=== PATIENT | male | born 1975 | race Caucasian/White ===

== ENCOUNTER 2019-01-08 05:34 | Inpatient (IN) | payer BC ==
[2019-01-08] VITALS (19 sets, daily range): BP systolic 98–142; BP diastolic 59–95; Ht 182.9 cm; Wt 90.2 kg
[~2019-01-08] VITALS: Ht 182.9 cm; Wt 90.2 kg
[2019-01-08] MEDS ORDERED: ALBUTEROL SULF8.5 GM INH (05:47)
[2019-01-08 06:12] LABS: HEMATOCRIT 37.4 % (42.0-54.0); HEMOGLOBIN 12.6 g/dL (13.5-17.5); MCH 31.5 pg (26.0-34.0); MCHC 33.7 g/dL (31.0-37.0); MCV 93.5 fL (80.0-100.0); MEAN PLATELET VOLUME 9.9 fL (7.4-10.4); RDW 12.8 % (11.5-14.5); WBC 10.8 10x3/uL (4.8-10.8)
[2019-01-08 06:40] LABS: PRO BNP 80 pg/mL (0-125); TROPONIN-I < 0.017 ng/mL (0.000-0.060)
[2019-01-08 06:51] LABS: INR 1.15 (0.85-1.17); PROTIME 14.2 SECONDS (11.6-15.0)
[2019-01-08 06:52] LABS: APTT 72.5 SECONDS (22.8-39.4)
[2019-01-08 07:25] LABS: % SATURATION 13 % (15-55); IRON 30 ug/dl (35-150); TOTAL IRON BIND CAPACITY 225 ug/dl (260-445); UNSAT IRON BIND CAPACITY 195 ug/dl (150-375)
[2019-01-08 07:37] LABS: ALBUMIN 3.3 g/dL (3.4-5.0); ALKALINE PHOSPHATASE 89 U/L (46-116); ALT (SGPT) 76 U/L (10-68); BILIRUBIN - TOTAL 0.96 mg/dL (0.2-1.3); CALC OSMOLALITY 280 mosm/kg (275-300); CALCIUM 8.4 mg/dL (8.5-10.1); CARBON DIOXIDE 26.3 mmol/L (21.0-32.0); CHLORIDE - SERUM 104 mmol/L (98-107); FERRITIN 466 ng/mL (3-244); GLUCOSE 100 mg/dL (74-106); POTASSIUM - SERUM 3.9 mmol/L (3.5-5.1); PROTEIN - SERUM 7.7 g/dL (6.4-8.2); SODIUM 140 mmol/L (136-145); UREA NITROGEN 18 mg/dL (7-18); eGFR NON AFRICAN AMERICAN 86 mL/min (90-120)
[2019-01-08] MEDS ORDERED: IBUPROFEN600 MG PO (10:03)
[2019-01-08] MEDS ORDERED: ASMANEX0.24 GM INH (10:08)
[2019-01-08 10:09] LABS: AMORPHOUS SEDIMENT <1+ /lpf (NONE SEEN); APPEARANCE CLEAR (CLEAR); BILIRUBIN NEGATIVE (NEGATIVE); COLOR YELLOW (YELLOW); GLUCOSE NEGATIVE (NEGATIVE); KETONE LARGE mg/dL (NEGATIVE); NITRITE NEGATIVE (NEGATIVE); PROTEIN NEGATIVE (NEGATIVE); UROBILINOGEN NORMAL (NORMAL)
[2019-01-08] MEDS ORDERED: ZYRTEC10 MG PO (10:09)
[2019-01-08] MEDS ORDERED: FLOMAX0.4 MG PO (10:10)
[2019-01-08 10:17] LABS: UDS - AMPHET NEGATIVE QUAL (NEGATIVE); UDS - BARB NEGATIVE QUAL (NEGATIVE); UDS - BENZO NEGATIVE QUAL (NEGATIVE); UDS - COCAINE NEGATIVE QUAL (NEGATIVE); UDS - OPIATE POSITIVE QUAL (NEGATIVE); UDS - PCP NEGATIVE QUAL (NEGATIVE); UDS - THC NEGATIVE QUAL (NEGATIVE)
[2019-01-09] VITALS (15 sets, daily range): BP systolic 90–117; BP diastolic 54–76
[2019-01-09 03:15] LABS: HEMATOCRIT 32.9 % (42.0-54.0); HEMOGLOBIN 10.6 g/dL (13.5-17.5); MCH 30.2 pg (26.0-34.0); MCHC 32.2 g/dL (31.0-37.0); MCV 93.7 fL (80.0-100.0); MEAN PLATELET VOLUME 10.1 fL (7.4-10.4); RBC 3.51 10x6/uL (4.20-6.10); RDW 12.9 % (11.5-14.5)
[2019-01-09 06:28] LABS: ALBUMIN 2.6 g/dL (3.4-5.0); ALKALINE PHOSPHATASE 74 U/L (46-116); ALT (SGPT) 70 U/L (10-68); BILIRUBIN - TOTAL 0.61 mg/dL (0.2-1.3); CALCIUM 7.9 mg/dL (8.5-10.1); CARBON DIOXIDE 24.7 mmol/L (21.0-32.0); CHLORIDE - SERUM 105 mmol/L (98-107); CREATININE - SERUM 0.9 mg/dL (0.6-1.3); GLUCOSE 95 mg/dL (74-106); POTASSIUM - SERUM 4.2 mmol/L (3.5-5.1); SODIUM 139 mmol/L (136-145); eGFR NON AFRICAN AMERICAN > 90 mL/min (90-120)
[2019-01-09 06:30] LABS: CALC OSMOLALITY 277 mosm/kg (275-300); PROTEIN - SERUM 5.7 g/dL (6.4-8.2); UREA NITROGEN 12 mg/dL (7-18)
[2019-01-09 18:10] LABS: APPEARANCE CLEAR (CLEAR); BILIRUBIN NEGATIVE (NEGATIVE); COLOR YELLOW (YELLOW); GLUCOSE NEGATIVE (NEGATIVE); KETONE NEGATIVE (NEGATIVE); NITRITE NEGATIVE (NEGATIVE); PROTEIN NEGATIVE (NEGATIVE)
[2019-01-09 18:12] LABS: BACTERIA FEW /hpf (NONE SEEN); EPITHELIAL CELLS 0-5 /hpf (0-5); RED CELLS - URINE OCC /hpf (0-5); WHITE CELLS - URINE OCC /hpf (0-5)
[2019-01-09] MEDS ORDERED: ASMANEX0.24 GM INH (20:07)
[2019-01-10 03:01] LABS: HEMATOCRIT 30.5 % (42.0-54.0); HEMOGLOBIN 10.1 g/dL (13.5-17.5); MCHC 33.1 g/dL (31.0-37.0); MCV 93.6 fL (80.0-100.0); MEAN PLATELET VOLUME 10.3 fL (7.4-10.4); RBC 3.26 10x6/uL (4.20-6.10); RDW 12.8 % (11.5-14.5); WBC 7.2 10x3/uL (4.8-10.8)
[2019-01-10 05:36] VITALS: BP 120/80
[2019-01-10 08:09] VITALS: BP 107/74
[2019-01-10 10:37] LABS: ALBUMIN 2.7 g/dL (3.4-5.0); ALKALINE PHOSPHATASE 79 U/L (46-116); ALT (SGPT) 59 U/L (10-68); BILIRUBIN - TOTAL 0.46 mg/dL (0.2-1.3); CALCIUM 8.7 mg/dL (8.5-10.1); CARBON DIOXIDE 25.7 mmol/L (21.0-32.0); CHLORIDE - SERUM 106 mmol/L (98-107); POTASSIUM - SERUM 3.6 mmol/L (3.5-5.1); PROTEIN - SERUM 7.1 g/dL (6.4-8.2); SODIUM 141 mmol/L (136-145); UREA NITROGEN 13 mg/dL (7-18); eGFR NON AFRICAN AMERICAN 86 mL/min (90-120)
[2019-01-10 10:38] LABS: CALC OSMOLALITY 283 mosm/kg (275-300); GLUCOSE 145 mg/dL (74-106)
[2019-01-10 12:11] VITALS: BP 104/68
--- NOTE | 2019-01-10 15:00 | MORECARE ---
CASE MANAGEMENT DISCHARGE SUMMARY PATIENT: MUSA ALCANTARA UNIT: [id number] ADM DATE: 01/08/19 AGE: 43 : 71 SEX: M ROOM/BED: D.2216 AUTHOR: LISET WARREN PHYSICIAN: REFERRING PHYSICIAN: LEONEL JOSEPH MD DATE OF SERVICE: 01/10/19 Discharge Plan Patient Name: MUSA ALCANTARA [facility] [facility] 1975 Planned Disposition: Home Anticipated Discharge Date: Discharge Date: Expected LOS: Initial Reviewer: [email or web address] Initial Review Date: 01/08/2019 Generated: 01/10/19 3:59 pm Patient Name: MUSA ALCANTARA Page [id number] at 1500 All edits/amendments must be made on the electronic document DICTATION DATE: 01/10/191458 LINING CLOSER: [place] 01/10/191458 RPT#: [id number] DE DATE: STATUS: ADM IN [facility] [address] [place] [address] END OF REPORT
--- NOTE | 2019-01-10 15:08 | MORECARE ---
CASE MANAGEMENT DISCHARGE SUMMARY PATIENT: MUSA ALCANTARA UNIT: [id number] ADM DATE: 01/08/19 AGE: 43 : 71 SEX: M ROOM/BED: D.2216 AUTHOR: KELVIN,DOC PHYSICIAN: REFERRING PHYSICIAN: LEONEL JOSEPH MD DATE OF SERVICE: 01/10/19 Discharge Plan Patient Name: MUSA ALCANTARA Facility: [facility]:[place] : 1975 Planned Disposition: Home Anticipated Discharge Date: Discharge Date: Expected LOS: Initial Reviewer: [email or web address] Initial Review Date: 01/08/2019 Generated: 01/10/19 4:08 pm Comments DCP- Discharge Planning Updated by [email or web address]: Jaylene Osorio on 01/10/19 2:[address] Patient Name: MUSA ALCANTARA Admission Status: ER Accout number: [id number] Admission Date: 01-08-2019 : 1975 Admission Diagnosis: Attending: LEONEL JOSEPH Current LOS: 2 Anticipated DC Date: Planned Disposition: Home Primary Insurance: [place] Discharge Planning Comments: CM met with patient to complete initial dc planning assessment. CM educated patient on the CM role and verbal consent given by patient to complete assessment. Patient lives at home with his and children where he is independent with his care. At discharge patient plans to return home and feels this is a safe discharge. CM discussed availability of home health, rehab services, and medical equipment. Patient denied known discharge needs at this time. CM will continue to follow and will assist as needed with dc plans/needs. Microbial Specialist: Jaylene Osorio DCPIA - Discharge Planning Initial Assessment Updated by [email or web address]: Jaylene Osorio on 01/10/19 3:00 pm * Is the patient Alert and Oriented? Yes * How many steps to enter\exit or inside your home? stairs * PCP [facility] * Pharmacy [facility] * Preadmission Environment Home with Family * ADLs Independent * Equipment None * List name and contact numbers for known caregivers / representatives who currently or will assist patient after discharge: Mila () [phone] * Verbal permission to speak to the caregivers and representatives has been obtained from the patient. Yes * Community resources currently utilized None * Additional services required to return to the preadmission environment? No * Can the patient safely return to the preadmission environment? Yes * Has this patient been hospitalized within the prior 30 days at any hospital? No Last DP export: 01/10/19 1:59 p Patient Name: MUSA ALCANTARA Page 26705 at 1508 All edits/amendments must be made on the electronic document DICTATION DATE: 01/10/191506 WHEAT GROWER: [place] 01/10/191506 RPT#: [id number] DC DATE: STATUS: ADM IN [facility] [address] [place] [address] END OF REPORT
[2019-01-10 15:41] VITALS: BP 112/76
[2019-01-10 16:40] LABS: INR 1.14 (0.85-1.17)
[2019-01-10 20:52] VITALS: BP 140/86
[2019-01-11 00:53] VITALS: BP 141/87
[2019-01-11 05:12] LABS: FOLATE (FOLIC ACID) - SERUM 16.1 ng/mL (>3.0)
[2019-01-11 05:42] VITALS: BP 157/99
[2019-01-11 06:26] LABS: BASOPHILS 0.4 % (0-2); EOSINOPHILS 4.8 % (0-7); HEMATOCRIT 33.8 % (42.0-54.0); HEMOGLOBIN 11.4 g/dL (13.5-17.5); IMMATURE GRANULOCYTES 0.2 % (0-5); LYMPHOCYTES 22.5 % (15-50); MCH 30.8 pg (26.0-34.0); MCHC 33.7 g/dL (31.0-37.0); MEAN PLATELET VOLUME 10.5 fL (7.4-10.4); MONOCYTES 7.6 % (2-11); NEUTROPHILS 64.5 % (40-80); RDW 12.6 % (11.5-14.5); WBC 8.4 10x3/uL (4.8-10.8)
[2019-01-11 06:27] LABS: MCV 91.4 fL (80.0-100.0); PLATELET COUNT 238 10x3/uL (130-400)
[2019-01-11 06:31] LABS: ALBUMIN 2.8 g/dL (3.4-5.0); ALKALINE PHOSPHATASE 77 U/L (46-116); ALT (SGPT) 69 U/L (10-68); BILIRUBIN - TOTAL 0.39 mg/dL (0.2-1.3); CALCIUM 8.7 mg/dL (8.5-10.1); CARBON DIOXIDE 25.5 mmol/L (21.0-32.0); CHLORIDE - SERUM 105 mmol/L (98-107); CREATININE - SERUM 0.9 mg/dL (0.6-1.3); POTASSIUM - SERUM 3.4 mmol/L (3.5-5.1); PROTEIN - SERUM 6.8 g/dL (6.4-8.2); SODIUM 139 mmol/L (136-145); UREA NITROGEN 13 mg/dL (7-18); eGFR NON AFRICAN AMERICAN > 90 mL/min (90-120)
[2019-01-11 06:34] LABS: CALC OSMOLALITY 277 mosm/kg (275-300); GLUCOSE 97 mg/dL (74-106)
[2019-01-11 09:13] VITALS: BP 129/79
[2019-01-11 12:11] LABS: ACLA - IGG AB <9 GPL U/mL (0-14); ACLA - IGM AB <9 MPL U/mL (0-12)
[2019-01-11 14:08] VITALS: BP 134/74
--- NOTE | 2019-01-11 14:48 | OP ---
PATIENT NAME: MUSA ALCANTARA MEDICAL RECORD: [id number] :71 LOCATION:D.MS [id number] ADMISSION DATE:01/08/19 SURGEON: LUIS ANGEL DEE MD DATE OF OPERATION: 01/11/2019 SURGEON: Luis Angel Dee MD ANESTHESIA: TIVA by Gilbert Zheng CRNA DIAGNOSES: Microscopic hematuria, urinary frequency, possible interstitial cystitis. PROCEDURES: Cystoscopy, intravesical Rimso instillation. FINDINGS: On cystoscopy, no urethral strictures. Nonobstructive prostate. Diffuse bladder inflammation with glomerulations. These are suggestive of interstitial cystitis. There are no bladder tumors seen and he has single ureteral orifices bilaterally. SPECIMENS: None. ESTIMATED BLOOD LOSS: None. CLINICAL HISTORY: This is a 43-year-old male, who is currently in hospital because of bilateral pulmonary embolism. He has a strong family history of unprovoked pulmonary emboli and he probably has a hypercoagulable state. He is currently on anticoagulation with IV heparin. Prior to his acute episode of PE in [place], [place] he had issues with microscopic hematuria already. His physician there had noticed this. He is a nonsmoker. With the shortness of breath, he had a CT angiogram and CT scans, which showed normal kidneys. He does complain of frequent urinary voiding also. He comes today for cystoscopy to evaluate for microscopic hematuria while he is still in the hospital before he goes back to [place]. HE IS ALLERGIC TO PENICILLIN AND ASPIRIN. He was given Levaquin IV collision estimator to the OR. DESCRIPTION OF PROCEDURE: The patient was given IV sedation. He was then placed into a lithotomy position and prepped and draped. A 17-Tamazight cystoscope with 30-degree lens was used for visualization. The findings are as outlined above. This was highly suggestive of interstitial cystitis. The bladder was then emptied through the cystoscope sheath and the scope was removed. We inserted a red rubber catheter into the bladder. Through the lumen of the catheter, we instilled 50 mL of intravesical Rimso solution into the bladder. Once the solution was in the bladder, the catheter was removed entirely. The patient will hold the solution in for at least 15 minutes and then void it out. TRANSINT:[id number] Voice Confirmation ID: [id number] DOCUMENT ID: [id number] OPERATIVE REPORT [id number] MARICRUZMUSA LUIS ANGEL DEE MD at 1448 CC: [id number] DICTATION DATE: 01/11/19 1353 PHOTOGRAPHIC ARTIST: 01/11/19 1430 ADM IN [place] [id number] [place] [id number]
[2019-01-11 17:47] VITALS: BP 121/69
[2019-01-11 21:18] VITALS: BP 115/69
[2019-01-12 01:20] VITALS: BP 114/68
[2019-01-12 03:08] LABS: LUPUS - INTERPRETATION Comment: (()); LUPUS - THROMBIN TIME 15.8 sec (0.0-23.0); LUPUS - dRVVT 33.4 sec (0.0-47.0); PTT-LA 46.5 sec (0.0-51.9)
[2019-01-12 05:08] LABS: BASOPHILS 0.3 % (0-2); EOSINOPHILS 4.6 % (0-7); HEMATOCRIT 33.6 % (42.0-54.0); HEMOGLOBIN 11.2 g/dL (13.5-17.5); IMMATURE GRANULOCYTES 0.4 % (0-5); LYMPHOCYTES 17.3 % (15-50); MCH 30.5 pg (26.0-34.0); MCHC 33.3 g/dL (31.0-37.0); MCV 91.6 fL (80.0-100.0); MEAN PLATELET VOLUME 10.3 fL (7.4-10.4); MONOCYTES 8.8 % (2-11); NEUTROPHILS 68.6 % (40-80); PLATELET COUNT 215 10x3/uL (130-400); RBC 3.67 10x6/uL (4.20-6.10); RDW 12.9 % (11.5-14.5); WBC 7.6 10x3/uL (4.8-10.8)
[2019-01-12 05:28] LABS: ALBUMIN 2.7 g/dL (3.4-5.0); ALKALINE PHOSPHATASE 75 U/L (46-116); BILIRUBIN - TOTAL 0.52 mg/dL (0.2-1.3); CALC OSMOLALITY 275 mosm/kg (275-300); CALCIUM 8.4 mg/dL (8.5-10.1); CARBON DIOXIDE 25.2 mmol/L (21.0-32.0); CHLORIDE - SERUM 105 mmol/L (98-107); CREATININE - SERUM 0.8 mg/dL (0.6-1.3); GLUCOSE 90 mg/dL (74-106); POTASSIUM - SERUM 3.9 mmol/L (3.5-5.1); PROTEIN - SERUM 6.7 g/dL (6.4-8.2); SODIUM 138 mmol/L (136-145); UREA NITROGEN 12 mg/dL (7-18); eGFR NON AFRICAN AMERICAN > 90 mL/min (90-120)
[2019-01-12 05:41] LABS: ALT (SGPT) 104 U/L (10-68)
[2019-01-12 05:58] VITALS: BP 115/52
[2019-01-12 09:47] VITALS: BP 120/75
[2019-01-12] MEDS ORDERED: ZITHROMAX250 MG PO (11:44)
[2019-01-12] MEDS ORDERED: ELIQUIS5 MG PO (11:45)
[2019-01-12] MEDS ORDERED: PROTONIX40 MG PO (11:46)
[2019-01-12] MEDS ORDERED: OMNICEF300 MG PO (11:46)
[2019-01-12] MEDS ORDERED: Tessalon Perle PO (11:47)
[2019-01-12] MEDS ORDERED: NORCO-7.5 PO (11:47)
[2019-01-12 12:00] VITALS: BP 119/75
[2019-01-12] MEDS ORDERED: ASMANEX0.24 GM INH (15:45)
[2019-01-12] MEDS ORDERED: ALBUTEROL SULF8.5 GM INH (15:48)
--- NOTE | 2019-01-13 16:49 | MORECARE ---
CASE MANAGEMENT DISCHARGE SUMMARY PATIENT: MUSA ALCANTARA UNIT: [id number] ADM DATE: 01/08/19 AGE: 43 : 71 SEX: M ROOM/BED: D.2216 AUTHOR: KELVINDOC PHYSICIAN: REFERRING PHYSICIAN: LEONEL JOSEPH MD DATE OF SERVICE: 01/13/19 Discharge Plan Patient Name: MUSA ALCANTARA Facility: [facility]:[place] : 1975 Planned Disposition: Home Anticipated Discharge Date: Discharge Date: 01/12/2019 Expected LOS: 0 Initial Reviewer: [email or web address] Initial Review Date: 01/08/2019 Generated: 01/13/19 5:48 pm Comments DCP- Discharge Planning Updated by [email or web address]: Jaylene Osorio on 01/10/19 2:[address] Patient Name: MUSA ALCANTARA Admission Status: ER Accout number: [id number] Admission Date: 01-08-2019 : 1975 Admission Diagnosis: Attending: LEONEL JOSEPH Current LOS: 2 Anticipated DC Date: Planned Disposition: Home Primary Insurance: [employer] [place] Discharge Planning Comments: CM met with patient to complete initial dc planning assessment. CM educated patient on the CM role and verbal consent given by patient to complete assessment. Patient lives at home with his and children where he is independent with his care. At discharge patient plans to return home and feels this is a safe discharge. CM discussed availability of home health, rehab services, and medical equipment. Patient denied known discharge needs at this time. CM will continue to follow and will assist as needed with dc plans/needs. Manager Multicultural: Jaylene Osorio DCPIA - Discharge Planning Initial Assessment Updated by [email or web address]: Jaylene Osorio on 01/10/19 3:00 pm * Is the patient Alert and Oriented? Yes * How many steps to enter\exit or inside your home? stairs * PCP [facility] * Pharmacy [facility] * Preadmission Environment Home with Family * ADLs Independent * Equipment None * List name and contact numbers for known caregivers / representatives who currently or will assist patient after discharge: Mila () [phone] * Verbal permission to speak to the caregivers and representatives has been obtained from the patient. Yes * Community resources currently utilized None * Additional services required to return to the preadmission environment? No * Can the patient safely return to the preadmission environment? Yes * Has this patient been hospitalized within the prior 30 days at any hospital? No Last DP export: 01/10/19 2:08 p Patient Name: MUSA ALCANTARA Page [id number] at 1649 All edits/amendments must be made on the electronic document DICTATION DATE: 01/13/191647 WIRE BOUND BOX MACHINE HELPER: [place] 01/13/191647 RPT#: [id number] DC DATE:01/12/19 STATUS: DIS IN [facility] [address] [place] [address] END OF REPORT
[2019-01-14 03:08] LABS: FACTOR II DNA ANALYSIS Negative (())
== END 2019-01-12 17:45 | disposition home or self-care (01) | DRG 175 ==
LOC: D.ER 05:34 → D.ICU 05:54 → D.MS 05:54
PROVIDERS: Emergency Medicine; Family Medicine; Internal Medicine Hematology & Oncology; Urology; ADMIT Internal Medicine Nephrology; ATTEND Internal Medicine Nephrology
PROC: 3E0K8GC Introduction of Other Therapeutic Substance into Genitourinary Tract, Via Natural or Artificial Opening Endoscopic (ICD-10-PCS; principal; 2019-01-11 11:30)
DX: I26.99 Other pulmonary embolism without acute cor pulmonale (principal); J96.01 Acute respiratory failure with hypoxia; J18.1 Lobar pneumonia, unspecified organism; J98.11 Atelectasis; D50.9 Iron deficiency anemia, unspecified; R31.29 Other microscopic hematuria; N30.11 Interstitial cystitis (chronic) with hematuria; I27.21 Secondary pulmonary arterial hypertension

== ENCOUNTER → 2019-01-28 13:45 | Outpatient (CLI) | payer BC ==
[2019-01-08 11:58] VITALS: BMI 26.3
[~2019-01-28 13:45] MED LIST: ALBUTEROL SULF8.5 GM INH; ASMANEX0.24 GM INH; ELIQUIS5 MG PO; FLOMAX0.4 MG PO; IBUPROFEN600 MG PO; NORCO-7.5 PO; OMNICEF300 MG PO; PROTONIX40 MG PO; Tessalon Perle PO; ZITHROMAX250 MG PO; ZYRTEC10 MG PO
== END | disposition home or self-care (01) ==
LOC: D.LABREF 13:45
PROVIDERS: ATTEND Urology
DX: R31.9 Hematuria, unspecified (principal)

== ENCOUNTER → 2019-07-06 13:35 | Outpatient (CLI) | payer BC ==
[2019-01-08 11:58] VITALS: BMI 26.3
== END | disposition home or self-care (01) ==
LOC: D.RT 06-23 09:30
PROVIDERS: ATTEND Internal Medicine Pulmonary Disease
DX: J45.909 Unspecified asthma, uncomplicated (principal)